=== PATIENT | male | born 2005 | race African-American/Black ===

== ENCOUNTER 2024-03-21 22:12 | Emergency (ER) | payer OTHER ==
[2024-03-21] MEDS ORDERED: TDAP (DIPHTH,PERTUSS(ACELL),TET VAC) 0.5 ML VIAL IMVAC ONE (22:36)
[2024-03-21] MEDS ORDERED: LIDOCAINE 2% W/EPI 1:200,000 MPF 20 ML VIAL IM ONE (22:36)
--- NOTE | 2024-03-21 23:41 | EDPHYS ---
Physician Documentation [facility] Name: Jesu Johnson Age: 18 yrs Sex: Male : 2005 Arrival Date: 03/21/2024 Time: 22:12 Bed 24 Private MD: ED Physician Dell Miguel HPI: 03/21 22:20 This 18 yrs old Black Male presents to ER via Law Enforcement with complaints of cp Laceration To Hand. 22:20 The patient has a laceration sharp edge of chicken wire. The laceration(s) is(are) cp located on the dorsum of right hand. Onset: The symptoms/episode began/occurred today. Associated signs and symptoms: The patient has no apparent associated signs or symptoms. Historical: - Allergies: 22:24 No Known Allergies; lg3 - Home Meds: 22:24 None [Active]; lg3 - PMHx: 22:24 ADHD; lg3 - PSHx: 22:24 None; lg3 - Immunization history:: Adult Immunizations up to date, Last tetanus immunization: up to date. - Infectious Disease History:: Denies. - Social history:: Smoking status: Patient denies any tobacco usage or history of. Patient/guardian denies using alcohol, street drugs. ROS: 22:25 MS/extremity: Positive for laceration, of the dorsum of right hand, Negative for cp decreased range of motion, deformity, 22:25 Constitutional: hx per hpi cp 22:25 Constitutional: Negative for fever, 22:25 Neuro: Negative for numbness, weakness, 22:25 All other systems are negative, Exam: 22:30 Constitutional: The patient appears in no acute distress, alert, awake, well developed, cp well nourished, 22:30 Head/Face: Normocephalic, atraumatic. cp 22:30 Chest/axilla: Inspection: normal, 22:30 Cardiovascular: Rate: normal, 22:30 Respiratory: the patient does not display signs of respiratory distress, Respirations: normal, 22:30 Skin: injury, laceration(s), the wound is approximately 3.5 cm(s), of the dorsum of right hand, that can be described as no foreign body, irregular, with mild bleeding, Vital Signs: 22:22 BP 121 / 78; Pulse 79; Resp 16 S; Temp 97.5(O); Pulse Ox 100% on R/A; Weight 68.04 kg lg3 (R); Height 6 ft. 0 in. (R); Pain 4/10; 22:22 Body Mass Index 20.34 (68.04 kg, 182.88 cm) lg3 22:22 Pain Scale: Adult lg3 Laceration: 23:40 Wound Repair of 3.5cm ( 1.4in ) subcutaneous laceration to dorsum of right hand. cp Irregularly shaped.. Distal neuro/vascular/tendon intact. Anesthesia: Wound infiltrated with 5 mls of 2% lidocaine. Wound prep: Moderate cleansing by me, Wound irrigation by me. Skin closed with 5 4-0 Prolene using interrupted sutures and sterile technique. Dressed with Bacitracin, 4x4's. Patient tolerated well. MDM: 22:16 Patient medically screened. cp 23:40 Data reviewed: vital signs, nurses notes, and as a result, I will discharge patient. cp 23:40 Differential diagnosis: superficial laceration, tendon injury, vascular injury, open cp fracture. Counseling: I had a detailed discussion with the patient and/or guardian regarding the historical points, exam findings, and any diagnostic results supporting the discharge/admit diagnosis, the need for outpatient follow up, a family practitioner, to return to the emergency department if symptoms worsen or persist or if there are any questions or concerns that arise at home. Response to treatment: the patient's symptoms have markedly improved after treatment, and as a result, I will discharge patient. 03/21 22:16 Order name: Wound Care: please clean and irrigate wound; Complete Time: 23:25 cp 03/21 22:17 Order name: Dressing - Wound; Complete Time: 22:34 cp 03/21 22:17 Order name: Gloves, Sterile; Complete Time: 22:34 cp 03/21 22:17 Order name: Setup Suture Tray; Complete Time: 22:34 cp 03/21 23:39 Order name: Wound dressing; Complete Time: 23:54 cp Administered Medications: 22:44 Drug: Boostrix Tdap IM 0.5 ml IM once; as a single dose {Note: [employer] Lot tl4 [id number] Exp 04/22/2026.} Route: IM; Site: left deltoid; 23:56 Follow up: Response: No adverse reaction tl4 23:25 Drug: Lidocaine Infiltration (2 %) 10 ml 5 ml Infiltration once; with epinephrine tl4 {Note: administered by Jose KEARNEY.} Volume: 5 ml; Route: Infiltration; 23:56 Follow up: Response: No adverse reaction tl4 Disposition: 03/22 00:33 Co-signature as Attending Physician, Dell Miguel MD I agree with the assessment sp4 and plan of care. I reviewed the patient's care provided by Advanced Practice Provider \T\ agree w/ the diagnosis \T\ care plan. I personally saw the pt \T\ performed a substantive portion of the visit, incldng all aspects of the (History/Exam/Medical Decision Making). Disposition Summary: 03/21/24 23:40 Discharge Ordered Notes: Location: Home cp Problem: new cp Symptoms: have improved cp Condition: Stable cp Diagnosis - Laceration without foreign body of right hand, initial encounter cp Followup: cp - With: Private Physician - When: 10 - 14 days - Reason: Staple/Suture removal Discharge Instructions: - Discharge Summary Sheet cp - Laceration Care, Adult cp - Sutured Wound Care cp Forms: - Medication Reconciliation Form cp - Antibiotic Education cp - Prescription Opioid Use cp - Patient Portal Instructions cp - Leadership Thank You Letter cp Prescriptions: - Cephalexin 500 mg Oral Capsule - take 1 capsule ORAL route every 8 hours for 10 days; 30 capsule; Refills: 0, cp Product Selection Permitted - Ibuprofen 800 mg Oral Tablet - take 1 tablet ORAL route every 8 hours As needed take with food; 30 tablet; cp Refills: 0, Product Selection Permitted Signatures: Jose Garland PA PA cp Able, Lacie RN RN lg3 Dell Miguel MD MD sp4 Wesley Lopez RN RN tl4
--- NOTE | 2024-03-21 23:41 | ER ---
Nurse's Notes [facility] Name: Jesu Johnson Age: 18 yrs Sex: Male : 2005 Arrival Date: 03/21/2024 Time: 22:12 Bed 24 Private MD: Diagnosis: Laceration without foreign body of right hand, initial encounter Presentation: 03/21 22:22 Chief complaint: Patient states: cut the back of right hand on wire fencing. bleeding lg3 controlled. pain 4/10. Coronavirus screen: Client denies travel out of the [place] in the last 14 days. At this time, the client does not indicate any symptoms associated with coronavirus-19. Ebola Screen: No symptoms or risks identified at this time. Initial Sepsis Screen: Does the patient meet any 2 criteria? No. Patient's initial sepsis screen is negative. Does the patient have a suspected source of infection? No. Patient's initial sepsis screen is negative. Risk Assessment: Do you want to hurt yourself or someone else? Patient reports no desire to harm self or others. Onset of symptoms was March 21, 2024. 22:22 Method Of Arrival: Law Enforcement: [place] [employer] lg3 22:22 Acuity: YVONNE 4 lg3 Triage Assessment: 22:24 General: Appears in no apparent distress. comfortable, Behavior is calm, cooperative. lg3 Pain: Complains of pain in dorsum of right hand Pain does not radiate. Pain currently is 4 out of 10 on a pain scale. EENT: No deficits noted. No signs and/or symptoms were reported regarding the EENT system. Neuro: No deficits noted. Cruz Agitation-Sedation Scale (RASS): 0 - Alert and Calm Level of Consciousness is awake, alert, obeys commands, Oriented to person, place, time, situation. Cardiovascular: No deficits noted. Denies chest pain, shortness of breath, Capillary refill < 3 seconds Clubbing of nail beds is absent JVD is absent Patient's skin is warm and dry. Respiratory: No deficits noted. Airway is patent Respiratory effort is even, unlabored, Respiratory pattern is regular, symmetrical. GI: No deficits noted. No signs and/or symptoms were reported involving the gastrointestinal system. : No deficits noted. No signs and/or symptoms were reported regarding the genitourinary system. Derm: Skin is intact, is healthy with good turgor, Skin is dry, Skin is normal, Skin temperature is warm Wound noted dorsum of right hand. Musculoskeletal: No deficits noted. No signs and/or symptoms reported regarding the musculoskeletal system. Circulation, motion, and sensation intact. Range of motion: intact in all extremities. Historical: - Allergies: 22:24 No Known Allergies; lg3 - Home Meds: 22:24 None [Active]; lg3 - PMHx: 22:24 ADHD; lg3 - PSHx: 22:24 None; lg3 - Immunization history:: Adult Immunizations up to date, Last tetanus immunization: up to date. - Infectious Disease History:: Denies. - Social history:: Smoking status: Patient denies any tobacco usage or history of. Patient/guardian denies using alcohol, street drugs. Screenin:35 [facility] ED Fall Risk Assessment (Adult) History of falling in the last 3 months, lg3 including since admission No falls in past 3 months (0 pts) Confusion or Disorientation No (0 pts) Intoxicated or Sedated No (0 pts) Impaired Gait No (0 pts) Mobility Assist Device Used No (0 pt) Altered Elimination No (0 pt) Score/Fall Risk Level 0 - 2 = Low Risk Oriented to surroundings, Maintained a safe environment, Educated pt \T\ family on fall prevention, incl call for assistance when getting out of bed, Assessed \T\ reinforced patient's understanding of fall precautions. Abuse screen: Denies threats or abuse. Denies injuries from another. Nutritional screening: No deficits noted. Tuberculosis screening: No symptoms or risk factors identified. Assessment: 22:35 General: see triage assessment. lg3 Vital Signs: 22:22 BP 121 / 78; Pulse 79; Resp 16 S; Temp 97.5(O); Pulse Ox 100% on R/A; Weight 68.04 kg lg3 (R); Height 6 ft. 0 in. (R); Pain 4/10; 22:22 Body Mass Index 20.34 (68.04 kg, 182.88 cm) lg3 22:22 Pain Scale: Adult 3 ED Course: 22:15 Patient arrived in ED. lg3 22:15 Jose Garland PA is PHCP. cp 22:16 Dell Miguel MD is Attending Physician. cp 22:24 Triage completed. lg3 22:24 Arm band placed on left wrist. lg3 22:35 Patient has correct armband on for positive identification. Bed in low position. Client lg3 placed on continuous cardiac and pulse oximetry monitoring. NIBP monitoring applied. Door closed. Warm blanket given. Pillow given. 22:35 Wound care: to laceration located on dorsum of right hand was cleaned with soap and lg3 water, irrigated with normal saline, Patient tolerated well. 23:54 No provider procedures requiring assistance completed. IV discontinued, intact, tl4 bleeding controlled, No redness/swelling at site. Pressure dressing applied. 23:55 Provided Education on: call hanson. tl4 Administered Medications: 22:44 Drug: Boostrix Tdap IM 0.5 ml IM once; as a single dose {Note: [employer] Lot tl4 [id number] Exp 04/22/2026.} Route: IM; Site: left deltoid; 23:56 Follow up: Response: No adverse reaction tl4 23:25 Drug: Lidocaine Infiltration (2 %) 10 ml 5 ml Infiltration once; with epinephrine tl4 {Note: administered by Jose KEARNEY.} Volume: 5 ml; Route: Infiltration; 23:56 Follow up: Response: No adverse reaction tl4 Medication: 22:45 Vaccine Information Statement (VIS) provided today. Questions and/or concerns tl4 addressed. VIS edition date: February 06, 2021. Outcome: 23:40 Discharge ordered by . cp 23:54 Discharged to [facility] with guards tl4 23:54 Condition: stable 23:54 Discharge instructions given to patient, guards Instructed on discharge instructions, follow up and referral plans. medication usage, wound care, Demonstrated understanding of instructions, follow-up care, medications, wound care, Prescriptions given X 2, 23:56 Patient left the ED. tl4 Signatures: Jose Garland PA PA cp Able, Lacie RN RN lg3 Wesley Lopez RN RN tl4
[2024-03-22 00:44] VITALS: BP 121/78; TEMP 97.5; O2SAT 100
== END 2024-03-21 23:56 | disposition home or self-care (01) ==
LOC: ER 22:12
PROC: 0JQJ3ZZ Repair Right Hand Subcutaneous Tissue and Fascia, Percutaneous Approach (ICD-10-PCS; principal; 2024-03-21)
DX: S61.411A Laceration without foreign body of right hand, initial encounter (principal); W26.8XXA Contact with other sharp object(s), not elsewhere classified, initial encounter
CPT/HCPCS: 12042; 96372; 99284